=== PATIENT | female | born 1955 | race Caucasian/White ===

== ENCOUNTER → 2016-07-22 | Outpatient (CLI) | payer BC ==
--- NOTE | 2016-07-22 16:24 | REPMRS ---
Patient History The patient states she had a clinical breast exam in 06/2016. Patient is postmenopausal. Family history of breast cancer in sister at age 68, colorectal cancer in sister at age 48, and breast cancer in sister under age 50. Digital Woman Screen Mammo: July 22, 2016 - Exam #: [id number] Bilateral CC and MLO view(s) were taken. Technologist: Kailee Kaur, Technologist Prior study comparison: May 06, 2015, digital woman screen mammo performed at [facility]. April 05, 2014, digital woman screen mammo performed at [facility]. FINDINGS: There are scattered fibroglandular densities. There has been no change in the appearance of the mammogram from the prior studies. There is a mild amount of residual fibroglandular tissue which is fairly symmetric. There is no interval development of dominant mass, architectural distortion, or clustered microcalcification suggestive of malignancy. ASSESSMENT: BI-RADS/ACR category 1 mammogram. Negative. Recommendation Routine screening mammogram in 1 year (for women over age 40). This mammogram was interpreted with the aid of an FDA-approved computer-aided dectection system. Electronically Signed By: Arnoldo Coello MD 07/22/16 [id number]
== END ==
LOC: M WHC 14:57
PROVIDERS: ATTEND Nurse Practitioner Family
DX: Z12.31 Encounter for screening mammogram for malignant neoplasm of breast (principal); Z80.3 Family history of malignant neoplasm of breast; Z78.0 Asymptomatic menopausal state

== ENCOUNTER 2017-04-21 08:38 | Day surgery (SDC) | payer BC, OTHER ==
[~2017-04-21 08:38] MED LIST: LIDOCAINE 2% MDV 20 ML VIAL As Ordered; PROPOFOL 200 MG/20 ML VIAL As Ordered
[2017-04-21] MEDS: NS 1,000 ML IV (08:45)
== END 2017-04-21 10:30 | disposition home or self-care (01) ==
LOC: M OPP 08:38
DX: Z12.11 Encounter for screening for malignant neoplasm of colon (principal); K64.0 First degree hemorrhoids; K57.30 Diverticulosis of large intestine without perforation or abscess without bleeding; I10 Essential (primary) hypertension; E11.9 Type 2 diabetes mellitus without complications; E78.00 Pure hypercholesterolemia, unspecified; E03.9 Hypothyroidism, unspecified; Z79.82 Long term (current) use of aspirin; Z79.899 Other long term (current) drug therapy; Z80.0 Family history of malignant neoplasm of digestive organs; Z80.3 Family history of malignant neoplasm of breast; Z90.49 Acquired absence of other specified parts of digestive tract; Z90.710 Acquired absence of both cervix and uterus
CPT/HCPCS: 45378

== ENCOUNTER → 2017-07-29 | Outpatient (CLI) | payer BC, OTHER | LOC: M RAD 13:40 | DX: J32.9 Chronic sinusitis, unspecified (principal) | CPT/HCPCS: 70486 ==

== ENCOUNTER → 2017-11-05 | Outpatient (CLI) | payer BC | LOC: M WHC 14:57 | DX: Z12.31 Encounter for screening mammogram for malignant neoplasm of breast (principal) | CPT/HCPCS: 77067 ==

== ENCOUNTER 2018-02-14 16:12 | Emergency (ER) | payer OTHER, BC | END 2018-02-14 17:11 | disposition home or self-care (01) | LOC: M ED 16:12 | DX: S43.421A Sprain of right rotator cuff capsule, initial encounter (principal); X50.9XXA Other and unspecified overexertion or strenuous movements or postures, initial encounter; Y92.89 Other specified places as the place of occurrence of the external cause | CPT/HCPCS: 73030 ==

== ENCOUNTER 2018-02-23 09:53 | Outpatient (RCR) | payer OTHER | END 2018-02-25 | LOC: M PT 09:53 | DX: M25.511 Pain in right shoulder (principal) ==

== ENCOUNTER → 2018-03-28 | Outpatient (RCR) | payer OTHER ==
[~2018-03-28] MED LIST changes: +ASPI1TAB PO; +ATOR1TAB19 PO; -LIDOCAINE 2% MDV 20 ML VIAL As Ordered; +LISI10TA4 PO; +METF500T13 PO; +MULT1TAB10 PO; +NAPR-49 PO; -PROPOFOL 200 MG/20 ML VIAL As Ordered; +SYNT50TA PO; +VITA500046 PO; +VITA500T PO; +VITATAB11 PO
== END ==
LOC: M PT 03-01 09:29
PROVIDERS: ATTEND Orthopaedic Surgery
DX: Z47.89 Encounter for other orthopedic aftercare (principal); M25.511 Pain in right shoulder; M75.80 Other shoulder lesions, unspecified shoulder; M75.40 Impingement syndrome of unspecified shoulder

== ENCOUNTER → 2018-11-01 | Outpatient (CLI) | payer BC ==
[~2018-11-01] MED LIST changes: -ASPI1TAB PO; +ASPI81TA26 PO; -NAPR-49 PO; +NAPR-837 PO
--- NOTE | 2018-11-02 07:39 | REPMRS ---
Patient History The patient states she had a clinical breast exam in 10/2018. Patient is postmenopausal. Family history of colorectal cancer at age 68 in maternal half sister, colorectal cancer at age 48 and breast cancer under age 50 in sister. No Hormone Replacement Therapy 3D TOMOSYNTHESIS WAS PERFORMED. The [facility] lifetime risk for breast cancer is 7.4%. Digital Woman Screen Mammo: November 01, 2018 - Exam #: [id number] Bilateral CC and MLO view(s) were taken. Technologist: Kailee Kaur, Technologist Prior study comparison: November 05, 2017, bilateral digital woman screen mammo performed at [facility]. July 22, 2016, digital woman screen mammo performed at [facility]. FINDINGS: There are scattered fibroglandular densities. There has been no change in the appearance of the mammogram from the prior studies. There is a mild amount of residual fibroglandular tissue which is fairly symmetric. There is no interval development of dominant mass, architectural distortion, or clustered microcalcification suggestive of malignancy. Assessment: BI-RADS/ACR category 1 mammogram. Negative Mammogram. Recommendation Routine screening mammogram in 1 year (for women over age 40). This mammogram was interpreted with the aid of an FDA-approved computer-aided dectection system. Electronically Signed By: Arnoldo Coello MD 11/01/18 [id number]
== END ==
LOC: M WHC 14:59
PROVIDERS: ATTEND Nurse Practitioner Family
DX: Z12.31 Encounter for screening mammogram for malignant neoplasm of breast (principal); Z78.0 Asymptomatic menopausal state; Z80.0 Family history of malignant neoplasm of digestive organs; Z80.3 Family history of malignant neoplasm of breast

== ENCOUNTER → 2019-11-06 | Outpatient (CLI) | payer BC ==
[~2019-11-06] MED LIST changes: +VITA-243 PO; -VITA500T PO
--- NOTE | 2019-11-23 10:25 | REPMRS ---
Patient History The patient states she had a clinical breast exam in 10/2019. Patient is postmenopausal. Family history of colorectal cancer at age 68 in maternal half sister, colorectal cancer at age 48 and breast cancer under age 50 in sister. No Hormone Replacement Therapy Digital Woman Screen Mammo: November 06, 2019 - Exam #: [id number] Bilateral CC and MLO view(s) were taken. Technologist: Modesta Ruiz, Technologist Prior study comparison: November 01, 2018, bilateral digital woman screen [place] [facility] November 05, 2017, bilateral digital woman screen mammo [place] [facility] July 22, 2016, digital woman screen mammo [place] [facility] FINDINGS: There are scattered fibroglandular densities. There has been no change in the appearance of the mammogram from the prior studies. There is a mild amount of scattered fibroglandular density which is fairly symmetric. There is no interval development of dominant mass, architectural distortion, or grouped microcalcification suggestive of malignancy. 3-D tomosynthesis shows no additional findings. Assessment: BI-RADS/ACR category 1 mammogram. Negative Mammogram. Recommendation Routine screening mammogram of both breasts in 1 year (for women over age 40). This patient's Lifetime Breast Cancer Risk is estimated at 7.1 %. This mammogram was interpreted with the aid of an FDA-approved computer-aided dectection system. Electronically Signed By: Srini Farfan MD 11/23/19 [id number]
== END ==
LOC: M WHC 07:27
PROVIDERS: ATTEND Nurse Practitioner Family
DX: Z12.31 Encounter for screening mammogram for malignant neoplasm of breast (principal); Z80.0 Family history of malignant neoplasm of digestive organs; Z80.3 Family history of malignant neoplasm of breast

== ENCOUNTER 2021-03-18 14:50 | Emergency (ER) | payer BC, OTHER ==
[~2021-03-18] VITALS: Ht 154.9 cm; Wt 70.5 kg
[~2021-03-18 14:50] MED LIST changes: +LISI10TA22 PO; -LISI10TA4 PO
[2021-03-18 18:26] LABS: BASO % 0.3 % (0.0-1.0); HEMATOCRIT 43.1 % (36.0-47.0); LYMPH # 0.9 10^3/uL (1.5-5.0); LYMPH % 7.7 % (24.0-44.0); MEAN CORPUSCULAR HEMOGLOBIN 29.9 pg (27.0-33.0); MEAN CORPUSCULAR HGB CONC 32.5 g/dl (32.0-36.5); MEAN CORPUSCULAR VOLUME 91.9 fl (80.0-96.0); MONO # 0.4 10^3/uL (0.0-0.8); MONO % 3.5 % (2.0-8.0); NEUTROPHILS # 10.8 10^3/uL (1.5-8.5); NEUTROPHILS % 88.2 % (36.0-66.0); PLATELET COUNT, AUTOMATED 311 10^3/uL (150-450); RED BLOOD COUNT 4.69 10^6/uL (4.00-5.40); WHITE BLOOD COUNT 12.3 10^3/uL (4.0-10.0)
[2021-03-18] MEDS ORDERED: NS 1,000 ML IV ONE (18:40)
[2021-03-18 18:49] LABS: ALBUMIN 4.1 GM/DL (3.2-5.2); BILIRUBIN,DIRECT 0.2 MG/DL (0.0-0.2); BILIRUBIN,TOTAL 0.6 MG/DL (0.2-1.0); TOTAL PROTEIN 7.2 GM/DL (6.4-8.2)
[2021-03-18 18:53] LABS: INR 0.92; PROTHROMBIN TIME 12.7 SECONDS (12.7-14.5)
[2021-03-18 18:54] LABS: PARTIAL THROMBOPLASTIN TIME 23.3 SECONDS (25.9-37.0)
[2021-03-18 19:07] VITALS: BP 125/69
[2021-03-18] MEDS: GASTROGRAFIN SOLUTION 30ML PO SCH ×2 (19:15→19:45)
[2021-03-18] MEDS ORDERED: ISOVUE-370 76% 100ML VIAL As Ordered ONE (20:53)
--- NOTE | 2021-03-18 22:24 | REPVR ---
PROCEDURE INFORMATION: Exam: CT Abdomen And Pelvis With Contrast Exam date and time: 03/18/2021 9:18 PM Age: 66 years old Clinical indication: Abdominal pain; Localized; Lower; Additional info: Bloody diarrhea, lower abd cramping TECHNIQUE: Imaging protocol: Computed tomography of the abdomen and pelvis with contrast. Radiation optimization: All CT scans at this facility use at least one of these dose optimization techniques: automated exposure control; mA and/or kV adjustment per patient size (includes targeted exams where dose is matched to clinical indication); or iterative reconstruction. Contrast material: ISOVUE 370; Contrast volume: 100 ml; Contrast route: INTRAVENOUS (IV); Other contrast: Oral; COMPARISON: No relevant prior studies available. FINDINGS: Liver: Normal. No mass. Gallbladder and bile ducts: Previous cholecystectomy. Pancreas: Normal. No ductal dilation. Spleen: Normal. No splenomegaly. Adrenal glands: Normal. No mass. Kidneys and ureters: Small right renal hypodensity is too small to characterize. Stomach and bowel: There is colonic thickening greater distally. Mild pericolonic infiltrative change predominantly involving the sigmoid colon. Appendix: No evidence of appendicitis. Intraperitoneal space: Unremarkable. No free air. No significant fluid collection. Vasculature: Vascular calcification. Lymph nodes: Unremarkable. No enlarged lymph nodes. Urinary bladder: Urinary bladder is under distended. Reproductive: Previous hysterectomy. Bones/joints: There are degenerative and postoperative changes involving the spine. Soft tissues: Unremarkable. IMPRESSION: 1. Colonic thickening greater distally with mild pericolonic infiltrative change predominantly involving the sigmoid colon concerning for nonspecific colitis. 2. Additional non emergent findings as above. COMMENTS: Consistent with the [employer]'s Incidental Findings Committee white paper (J Am Serafin Radiol 2018): Any incidental renal lesion less than 1 cm or classified as too small to characterize, or any incidental cystic renal lesion characterized as simple-appearing, is likely benign. No follow-up imaging is recommended for these lesions per consensus recommendations based on imaging criteria. Electronically signed by: John Pittman On 03/18/2021 22:24:39 PM
[2021-03-18] MEDS ORDERED: metroNIDAZOLE (FLAGYL) 500MG TABLET PO ONE (22:30)
[2021-03-18] MEDS ORDERED: CIPROFLOXACIN 500MG TABLET PO ONE (22:30)
[2021-03-18] MEDS ORDERED: METR-265 PO (22:31)
[2021-03-18] MEDS ORDERED: CIPR-249 PO (22:31)
--- NOTE | 2021-03-21 09:23 | ED PDOC ---
Post-Departure Follow-Up radiology report faxed to suzan Bosch Sarah MD Mar 21, 2021 09:23
== END 2021-03-18 22:52 | disposition home or self-care (01) ==
LOC: M ED 14:50
DX: K51.90 Ulcerative colitis, unspecified, without complications (principal); R19.5 Other fecal abnormalities; E11.9 Type 2 diabetes mellitus without complications; I10 Essential (primary) hypertension; E78.5 Hyperlipidemia, unspecified; Z90.49 Acquired absence of other specified parts of digestive tract; E03.9 Hypothyroidism, unspecified
CPT/HCPCS: 36415; 74177; 80047; 80076; 83690; 85025; 85610; 85730; 86850; 86900; 86901; 87505; 99284; Q9963; Q9967

== ENCOUNTER → 2021-04-07 | Outpatient (REF) | payer OTHER ==
[~2021-04-07] MED LIST changes: +CIPR-249 PO; +METR-265 PO
== END ==
LOC: M PLALAB 14:02
PROVIDERS: ATTEND Obstetrics & Gynecology
DX: Z12.4 Encounter for screening for malignant neoplasm of cervix (principal)

== ENCOUNTER → 2021-04-07 | Outpatient (REF) | payer OTHER | LOC: M SFHCWAGY 18:52 | PROVIDERS: ATTEND Obstetrics & Gynecology | DX: Z12.4 Encounter for screening for malignant neoplasm of cervix (principal) | CPT/HCPCS: 87624; G0123 ==

== ENCOUNTER → 2022-06-09 | Outpatient (REF) | payer OTHER ==
[2022-06-09 17:01] LABS: ALKALINE PHOSPHATASE 71 U/L (46-116); ALT/SGPT 24 U/L (7.0-40); AST/SGOT 19 U/L (<34); BILIRUBIN,TOTAL 0.7 MG/DL (0.3-1.2); BLOOD UREA NITROGEN 17 MG/DL (9-23); CALCIUM LEVEL 9.2 MG/DL (8.3-10.6); CARBON DIOXIDE LEVEL 28 MMOL/L (20-31); CHLORIDE LEVEL 102 MMOL/L (98-107); CHOLESTEROL LEVEL 166 MG/DL (<200); CHOLESTEROL RISK RATIO 2.28 (<5); CREATININE FOR GFR 0.65 MG/DL (0.55-1.30); GLOMERULAR FILTRATION RATE > 60.0 (>45); GLUCOSE, FASTING 153 MG/DL (74-106); HDL CHOLESTEROL 72.6 MG/DL (>40); LDL CHOLESTEROL 70.4 MG/DL (<100); NON-HDL-C 93.4 MG/DL; POTASSIUM SERUM 4.8 MMOL/L (3.5-5.1); SODIUM LEVEL 138 MMOL/L (136-145); TOTAL PROTEIN 6.4 G/DL (5.7-8.2); TRIGLYCERIDES LEVEL 115 MG/DL (<150)
[2022-06-09 17:13] LABS: BASO # 0.1 10^3/uL (0.0-0.2); BASO % 0.7 % (0.0-1.0); EOS # 0.1 10^3/uL (0.0-0.5); EOS % 1.6 % (0.0-3.0); HEMATOCRIT 41.4 % (36.0-47.0); HEMOGLOBIN 13.5 g/dl (12.0-15.5); LYMPH % 27.1 % (24.0-44.0); MEAN CORPUSCULAR HEMOGLOBIN 31.5 pg (27.0-33.0); MEAN CORPUSCULAR HGB CONC 32.6 g/dl (32.0-36.5); MEAN CORPUSCULAR VOLUME 96.7 fl (80.0-96.0); MONO # 0.5 10^3/uL (0.0-0.8); MONO % 7.2 % (2.0-8.0); NEUTROPHILS # 4.7 10^3/uL (1.5-8.5); PLATELET COUNT, AUTOMATED 272 10^3/uL (150-450); RED BLOOD COUNT 4.28 10^6/uL (4.00-5.40); WHITE BLOOD COUNT 7.5 10^3/uL (4.0-10.0)
[2022-06-09 17:23] LABS: HEMOGLOBIN A1c 6.9 % (4.0-6.0)
== END ==
LOC: M LAB REF 16:07
PROVIDERS: ATTEND Physician Assistant
DX: E11.9 Type 2 diabetes mellitus without complications (principal); I10 Essential (primary) hypertension; E78.5 Hyperlipidemia, unspecified

== ENCOUNTER → 2022-08-19 | Day surgery (SDC) | payer BC, OTHER ==
[~2022-08-19] VITALS: Ht 154.9 cm; Wt 69.9 kg
[~2022-08-19] MED LIST changes: +EQL50TAB2 PO; +LEVO75TA4 PO; +NS 1,000 ML IV ONE; +PIOG1TAB36 PO; +THERTAB52 PO; +VITA100093 PO
[2022-08-19 10:20] VITALS: BP 119/62
== END | disposition home or self-care (01) ==
LOC: M OPP 08:57
PROVIDERS: ATTEND Surgery
DX: Z12.11 Encounter for screening for malignant neoplasm of colon (principal); Z80.0 Family history of malignant neoplasm of digestive organs; K64.0 First degree hemorrhoids; Z79.82 Long term (current) use of aspirin; Z79.84 Long term (current) use of oral hypoglycemic drugs; Z79.890 Hormone replacement therapy; Z79.899 Other long term (current) drug therapy

== ENCOUNTER → 2022-09-08 | Outpatient (CLI) | payer BC, OTHER ==
[~2022-09-08] MED LIST changes: -NS 1,000 ML IV ONE
== END ==
LOC: M WUC 11:30
PROVIDERS: ATTEND Physician Assistant
DX: E11.9 Type 2 diabetes mellitus without complications (principal)

== ENCOUNTER → 2022-10-05 | Outpatient (CLI) | payer BC, OTHER | LOC: M WHC 13:01 | PROVIDERS: ATTEND Obstetrics & Gynecology | DX: Z12.31 Encounter for screening mammogram for malignant neoplasm of breast (principal) ==

== ENCOUNTER → 2022-12-09 | Outpatient (CLI) | payer BC, OTHER ==
[2022-12-09 18:10] LABS: HEMOGLOBIN A1c 7.5 % (4.0-6.0)
[2022-12-09 18:15] LABS: HEMOGLOBIN 12.8 g/dl (12.0-15.5); MEAN CORPUSCULAR HEMOGLOBIN 31.8 pg (27.0-33.0); MEAN CORPUSCULAR HGB CONC 32.8 g/dl (32.0-36.5); MEAN CORPUSCULAR VOLUME 96.8 fl (80.0-96.0); PLATELET COUNT, AUTOMATED 253 10^3/uL (150-450); RED BLOOD COUNT 4.03 10^6/uL (4.00-5.40); WHITE BLOOD COUNT 5.3 10^3/uL (4.0-10.0)
[2022-12-09 18:18] LABS: ALBUMIN 3.9 G/DL (3.2-5.2); ALKALINE PHOSPHATASE 89 U/L (46-116); ALT/SGPT 54 U/L (7.0-40); AST/SGOT 27 U/L (<34); BILIRUBIN,TOTAL 0.5 MG/DL (0.3-1.2); BLOOD UREA NITROGEN 14 MG/DL (9-23); CARBON DIOXIDE LEVEL 29 MMOL/L (20-31); CHLORIDE LEVEL 105 MMOL/L (98-107); CHOLESTEROL LEVEL 175 MG/DL (<200); CHOLESTEROL RISK RATIO 2.28 (<5); CREATININE FOR GFR 0.64 MG/DL (0.55-1.30); GLOMERULAR FILTRATION RATE > 60.0 (>45); GLUCOSE, FASTING 144 MG/DL (74-106); HDL CHOLESTEROL 76.6 MG/DL (>40); LDL CHOLESTEROL 83.4 MG/DL (<100); NON-HDL-C 98.4 MG/DL; POTASSIUM SERUM 4.5 MMOL/L (3.5-5.1); SODIUM LEVEL 141 MMOL/L (136-145); TOTAL PROTEIN 6.4 G/DL (5.7-8.2); TRIGLYCERIDES LEVEL 75 MG/DL (<150)
[2022-12-09 18:22] LABS: THYROID STIMULATING HORMONE 1.578 uIU/ML (0.55-4.78)
== END ==
LOC: M WUC 10:52
PROVIDERS: ATTEND Physician Assistant
DX: E78.5 Hyperlipidemia, unspecified (principal); E11.9 Type 2 diabetes mellitus without complications; E03.9 Hypothyroidism, unspecified; I10 Essential (primary) hypertension

== ENCOUNTER → 2023-03-11 | Outpatient (REF) | payer OTHER ==
[2023-03-11 19:08] LABS: HEMOGLOBIN A1c 6.9 % (4.0-6.0)
== END ==
LOC: M LABWUC 17:48
PROVIDERS: ATTEND Physician Assistant
DX: E11.9 Type 2 diabetes mellitus without complications (principal)

== ENCOUNTER → 2023-07-30 | Outpatient (CLI) | payer BC ==
[2023-07-30 12:05] LABS: HEMATOCRIT 38.9 % (36.0-47.0); HEMOGLOBIN 12.8 g/dl (12.0-15.5); MEAN CORPUSCULAR HEMOGLOBIN 31.5 pg (27.0-33.0); MEAN CORPUSCULAR HGB CONC 32.9 g/dl (32.0-36.5); MEAN CORPUSCULAR VOLUME 95.8 fl (80.0-96.0); PLATELET COUNT, AUTOMATED 248 10^3/uL (150-450); RED BLOOD COUNT 4.06 10^6/uL (4.00-5.40)
[2023-07-30 12:13] LABS: ALBUMIN 3.8 G/DL (3.2-5.2); ALKALINE PHOSPHATASE 74 U/L (46-116); ALT/SGPT 26 U/L (7.0-40); AST/SGOT 18 U/L (<34); BILIRUBIN,TOTAL 0.5 MG/DL (0.3-1.2); BLOOD UREA NITROGEN 15 MG/DL (9-23); CALCIUM LEVEL 9.1 MG/DL (8.3-10.6); CARBON DIOXIDE LEVEL 28 MMOL/L (20-31); CHLORIDE LEVEL 103 MMOL/L (98-107); CHOLESTEROL LEVEL 174 MG/DL (<200); CHOLESTEROL RISK RATIO 2.43 (<5); CREATININE FOR GFR 0.65 MG/DL (0.55-1.30); GLOMERULAR FILTRATION RATE > 60.0 (>45); GLUCOSE, FASTING 159 MG/DL (74-106); HDL CHOLESTEROL 71.6 MG/DL (>40); LDL CHOLESTEROL 83.6 MG/DL (<100); NON-HDL-C 102.4 MG/DL; POTASSIUM SERUM 4.6 MMOL/L (3.5-5.1); SODIUM LEVEL 139 MMOL/L (136-145); TOTAL PROTEIN 6.3 G/DL (5.7-8.2); TRIGLYCERIDES LEVEL 94 MG/DL (<150)
[2023-07-30 12:15] LABS: THYROID STIMULATING HORMONE 1.394 uIU/ML (0.55-4.78)
[2023-07-30 12:37] LABS: HEMOGLOBIN A1c 6.4 % (4.0-6.0)
[2023-08-02 15:37] LABS: WHITE BLOOD COUNT 5.5 10^3/uL (4.0-10.0)
== END ==
LOC: M WUC 09:28
PROVIDERS: ATTEND Physician Assistant
DX: E78.5 Hyperlipidemia, unspecified (principal); E11.9 Type 2 diabetes mellitus without complications; E03.9 Hypothyroidism, unspecified; I10 Essential (primary) hypertension

== ENCOUNTER → 2023-11-02 | Outpatient (CLI) | payer BC ==
[2023-11-03 06:44] LABS: HEMOGLOBIN A1c 6.9 % (4.0-6.0)
== END ==
LOC: M WUC 09:00
PROVIDERS: ATTEND Physician Assistant
DX: E11.9 Type 2 diabetes mellitus without complications (principal)